=== PATIENT | female | born 1950 | race Caucasian/White ===

== ENCOUNTER 2023-10-03 09:57 | Emergency (ER) | payer MEDICARE, SELFPAY ==
--- NOTE | ~2023-10-03 | XR_ITS ---
XR chest 1V portable 10/03/2023 10:56 Indication: Dyspnea. Right rib pain after fall. Procedure: AP portable chest Comparison: No prior studies for comparison. Findings: Large hiatal hernia. Left subsegmental atelectasis mid thorax. There are bibasilar infiltra eb which may represent atelectasis or pneumonia. Generalized osteopenia. No pneumothorax. No edema. No acute osseous abnormality. Impression: 1: Bibasilar infiltrates may represent atelectasis or pneumonia. 2: Large hiatal hernia. Reviewed, dictated and finalized at location B. Impression: 1: Bibasilar infiltrates may represent atelectasis or pneumonia. 2: Large hiatal hernia.
[2023-10-03 10:00] VITALS: BP 178/92; PULSE 89; RESP 18; TEMP 36.9; O2SAT 94
--- NOTE | 2023-10-03 10:17 | ED.FALL ---
HPI - Fall General Chief Complaint: Fall Stated Complaint: fall 2 days ago Time Seen by Provider: 10/03/23 09:58 History of Present Illness HPI Narrative: 72-year-old female presenting to the emergency department for evaluation of right lower rib pain. Patient had a fall on Sunday while she was in the tub. Patient fell and struck her right ribs on the edge of the tub. Patient denies striking head denies loss consciousness. Patient states pain is worsened with deep inspiration and with movement. Related Data Allergies Allergy/AdvReac Type Severity Reaction Status Date / Time azithromycin Allergy Rash Verified 10/03/23 10:07 Sulfa (Sulfonamide Allergy Rash Verified 10/03/23 10:07 Antibiotics) Review of Systems Review of Systems: All systems reviewed & are unremarkable except as noted in HPI and below Exam Narrative: APPEARANCE: Well appearing, no pain, no distress, well-nourished. HEAD: normocephalic, atraumatic. EYES: PERRLA/EOMI, conjunctivae clear. NOSE: Normal no drainage EARS:TMS clear with good light reflex. THROAT: Pharynx clear, no exudate. NECK: Supple. No adenopathy, no masses. RESPIRATORY: Airway patent, respirations nonlabored. Clear to auscultation bilaterally, no rales, rhonchi, wheezing. CARDIOVASCULAR: Regular rate and rhythm without murmurs rubs or gallops. ABDOMINAL: Soft, nontender, nondistended, normal bowel sounds. No right upper quadrant abdominal tenderness to palpation MUSCULOSKELETAL: Right lower rib tenderness to palpation NEURO: Alert. Cranial nerves II through XII intact. Grossly SKIN: Warm, dry. Normal Color Course Course Emergency Course: Patient was discharged to home Vital Signs Vital signs: Vital Signs Temperature 98.4 F 10/03/23 10:00 Pulse Rate 89 10/03/23 10:00 Respiratory Rate 18 10/03/23 10:00 Blood Pressure 178/92 H 10/03/23 10:00 Pulse Oximetry 94 10/03/23 10:00 Oxygen Delivery Room Air 10/03/23 10:00 Temperature 98.4 F 10/03/23 10:00 Pulse Rate 87 10/03/23 11:53 Respiratory Rate 18 10/03/23 11:53 Blood Pressure 169/89 H 10/03/23 11:53 Pulse Oximetry 95 10/03/23 11:53 Oxygen Delivery Room Air 10/03/23 10:00 MDM - Fall MDM Narrative Medical decision making narrative: 72-year-old female presenting to the emergency department for evaluation of right lower rib pain after having a fall. Patient's abdomen was soft nontender and benign on exam. Patient did have reproducible tenderness to ribs just inferior to her right breast. Chest x-ray shows no evidence of pneumothorax and no obvious rib fractures. Patient was provided incentive spirometer. Patient declined any medications for pain control. Patient was updated on the results of her workup and was comfortable with the plan for close follow-up with her primary care physician and she was educated on reasons to return to the emergency department. Differential Diagnosis Differential diagnosis: Likely other (Pneumonia, pneumothorax, rib fracture, pulmonary contusion) Imaging Data Radiologist's impression: Impressions Chest X-Ray 10/03/23 10:58 Impression: 1: Bibasilar infiltrates may represent atelectasis or pneumonia. 2: Large hiatal hernia. Discharge Plan Discharge Clinical Impression: Contusion of rib Patient Disposition: Home, Self-Care Condition: Stable Instructions: Antibiotic Form, How to Use an Incentive Spirometer (ED), Rib Contusion (ED) Additional Instructions: Tylenol and ibuprofen for pain control. Flexeril for muscle spasm. Incentive spirometer as directed. If you have worsening shortness of breath or onset fever worsening pain then please call or return to the emergency department. Have close follow-up with her primary care physician. Prescriptions: New cyclobenzaprine 10 mg tablet 10 mg PO BID PRN (Reason: muscle spasm) Qty: 14 0RF Follow-up/Referrals: PHYSICIAN NOT ON STAFF,NONSTAFF [Primary Care Pr
[2023-10-03 11:53] VITALS: BP 169/89; PULSE 87; RESP 18; O2SAT 95
== END 2023-10-03 11:56 | disposition home or self-care (01) ==
PROVIDERS: Emergency Provider Emergency Medicine
DX: S20.211A Contusion of right front wall of thorax, initial encounter (principal); K44.9 Diaphragmatic hernia without obstruction or gangrene; R91.8 Other nonspecific abnormal finding of lung field; W18.2XXA Fall in (into) shower or empty bathtub, initial encounter
CPT/HCPCS: 71045; 99283